=== PATIENT | male | born 1990 | race Caucasian/White ===

== ENCOUNTER 2022-11-10 00:37 | Emergency (ER) | payer OTHER ==
[2022-11-10 00:45] VITALS: BP 134/78; PULSE 80; RESP 22; TEMP 98.4; BMI 30.5
[2022-11-10] MEDS ORDERED: SODIUM CHLORIDE 0.9% 500 ML INFUS.BAG IV ONE ×3 (01:23→02:40)
[2022-11-10 02:12] LABS: CHLORIDE 106 mmol/L (98-107); SODIUM 140 mmol/L (136-145)
[2022-11-10 02:13] LABS: BASO % 0.7 % (0-2.0); EOS % 0.3 % (0-4.5); HEMOGLOBIN 17.4 GM/dL (11.7-16.9); LYMPH % 15.7 % (8-40); MCHC 34.1 g/dl (32.0-35.9); MEAN CELL VOLUME 90.7 fl (80-96); MEAN PLT VOLUME 8.2 fl (7.5-11.1); MONO % 9.7 % (3.8-10.2); NEUT % 73.6 % (42.8-82.8); RBC 5.62 M/mm3 (4.00-5.60); WHITE BLOOD COUNT 11.4 K/mm3 (4.0-10.0)
[2022-11-10 02:14] LABS: CALCIUM 8.9 mg/dL (8.5-10.1)
[2022-11-10 02:15] LABS: ALBUMIN 3.7 g/dl (3.4-5.0); ANION GAP 8 MMOL/L (8-16); CO2 26 mmol/L (21-32); GLUCOSE,RANDOM 126 mg/dL (74-106); MAGNESIUM 1.8 mg/dL (1.8-2.4)
[2022-11-10 02:18] LABS: SGOT/AST 52 U/L (15-37); SGPT/ALT 117 U/L (13-61)
[2022-11-10 02:20] LABS: BILIRUBIN,TOTAL 0.4 mg/dL (0.2-1); TOT PROT 6.9 g/dl (6.4-8.2)
[2022-11-10 02:21] LABS: ALK PHOS 74 U/L (45-117)
[2022-11-10 04:38] LABS: PLATELET COUNT 225 10^3/uL (134-434); PLATELET ESTIMATE ADEQUATE
== END 2022-11-10 04:18 | disposition home or self-care (01) ==
LOC: JER 00:37
DX: R11.2 Nausea with vomiting, unspecified (principal)
CPT/HCPCS: 36415; 80053; 80307; 82550; 82553; 83735; 85025; 93005; 93010; 99284-25